=== PATIENT | female | born 1980 ===

== ENCOUNTER 2024-06-15 08:55 | Outpatient (AMB) | payer OTHER, SELFPAY ==
[2024-06-15 09:01] VITALS: BP 120/70; PULSE 87; TEMP 36.6; O2SAT 98; BMI 30.4
--- NOTE | 2024-06-15 09:01 | AM.OFFWIN_ITS ---
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 Patient Tobacco Use Status: Never used Tobacco Allergies amoxicillin [Augmentin] Allergy (Unknown, Verified 06/15/24 09:03) unknown clavulanic acid [Augmentin] Allergy (Unknown, Verified 06/15/24 09:03) unknown Do you need a note to return to daycare/school/sports/work: Yes HPI HPI Comments History of Present Illness Details History - The patient is a 44-year-old female pr esenting with a swollen and painful throat. - Last night, she started feeling throat pain after having no symptoms over the weekend. - During evaluation, the patient denied having a fever, significant cough, ear pain, sinus pain, or headache. She reported no history of seasonal asthma or significant allergies. - A slight runny nose was noted this [facility], but she had no associated shortness of breath or difficulty swallowing. - Strep test results were negative. Prev iously, she perceived some sneezing last year though it was attributed to being sick then. Physical Exam General: Cooperative, healthy appearing, comfortable and no acute distress Orientation/consciousness: Patient oriented x3 Limitations: No limitations Head: Normal to inspection Ears: Hearing grossly normal bilaterally, external ears normal and TM's normal bilaterally Nose: Normal external nose present, Normal nares present and Yes nasal discharge present Face and sinus: Normal facial exam and Yes sinuses nontender Mouth: Normal oral and palatal mucosa present and moist mucous membranes Throat: Yes tonsils normal, Yes uvula midline. Posterior oropharynx erythema and swollen Eyes: Appearance normal, both eyes and all related structures Neck: Normal visual inspection Respiratory: Clear to auscultation bilaterally. Normal respiratory effort, able to speak in complete sentences, No active coughing, no respiratory distress, not tachypneic, no tripod positioning and no use of accessory muscles Cardiovascular: Regular rate and rhythm. Normal S1 and S2 Skin: No rashes or lesions noted Neuro: Patient oriented x3 Extremities: Normal to inspection and Yes no clubbing, cyanosis or edema PFSH Social History Patient Tobacco Use Status: Never used Tobacco Review of Systems Const All systems reviewed & are unremarkable except as noted in HPI and below Physical Exam Vital Signs: Last Vital Signs Temp 98 F 06/15/24 09:01 Pulse 87 06/15/24 09:01 BP 120/70 06/15/24 09:01 Pulse Ox 98 06/15/24 09:01 Oxygen Delivery Method Room Air 06/15/24 09:01 BMI result Body Mass Index 30.4 Assessment & Plan Assessment & Plan (1) Acute viral pharyngitis: Code(s): J02.9 - Acute pharyngitis, unspecified Plan: VSS, pt well appearing and PE unremarkable. Based on the patient's symptom profile and negative strep test, I diagnosed viral upper respiratory infection. To alleviate throat pain and inflammation, I recommended ibuprofen 600 mg along with OTC chlorhexidine lozenges or OTC cough suppressants if symptoms progress. A viral panel was ordered to identify the exact pathogen. The patient was advised on rest and hydration, with a note provided for work absence to recover. I will communicate the viral test outcomes subsequently, as the likelihood of a viral causation is strong. Patient was informed and verbally consented to the use of an ambient scribe for clinic note documentation during this visit Orders: Orders 2 Resp Pathogen Panel - [facility] [place] Today J06.9 - Acute upper respiratory infection, unspecified Coding Level of Care Code New Pt Level 3 (38004) Diagnoses Acute viral pharyngitis J02.9
--- OUTSIDE RECORDS SUMMARY | 2024-06-15 09:22 | XMS_ITS | Clinical Summary ---
Author Organization [facility] Address [address] [place] [address] Phone Care Team Providers Care Structural Steel Painter Name Role Phone Alise Baldwin NP Primary Care Provider Unavail able Immunizations Immunization Administration Dates Next Due DTP 05/06/1986,10/30/1982,1981 ,1981,1981 MMR 11/26/1991,05/25/1986 OPV 05/06/1986,10/30/1982,1981 ,1981,1981 Social History Tobacco Use Types Packs/Day Years Used Date Smoking Tobacco: Never Assessed Comments Unknown Sex and Gender Information Value Date Recorded Sex Assigned at Not on file Legal Sex Female 4:45 PM EDT Gender Identity Not on file Sexual Orientation Not on file Plan of Treatment Health Maintenance Due Date Last Done Comments DTaP,Tdap,and Td Vaccines (6 - Tdap) 02/05/1992 05/06/1986, 10/30/1982, 1981, Additional history exists Varicella Vaccines (1 of 2 - 13+ 2-dose series) 1994 Hepatitis B Vaccines (1 of 3 - 19+ 3-dose series) 02/05/2000 Influenza Vaccines (#1) 2023 COVID-19 Vaccine ( season) 2023 IPV Vaccines Completed 05/06/1986, 07/1982, 1981, Additional history exists MMR Vaccines Completed 11/26/1991, 05/25/1986 HIB Vaccines Aged Out No longer eligi ble based on patient's age to complete this topic HPV Vaccines Aged Out No longer eligi ble based on patient's age to complete this topic Hepatitis A Vaccines Aged Out No long er eligible based on patient's age to complete this topic Men B Vaccine Aged Out No longer elig ible based on patient's age to complete this topic Meningococcal Vaccine Aged Out No charlotte mee eligible based on patient's age to complete this topic Pneumococcal Vaccine Aged Out No long er eligible based on patient's age to complete this topic Care Teams Structural Steel Painter Relationship Specialty Start Date End Date Alise Baldwin NP PCP - General 10/04/16
--- OUTSIDE RECORDS SUMMARY | 2024-06-15 09:22 | XMS_ITS | Clinical Summary ---
Author Organization [address] Address [address] [place] [phone] Phone Care Team Providers Care Labor Standards Director Name Role Phone Veronica Sauer MD Primary Care Provider [phone] Allergies Active Allergy Reactions Criticality Noted Date Comments Amoxicillin-Pot Clavulanate Nausea And Vomiting Low 07/07/2008 Medications cephalexin (KEFLEX) 500 mg capsuleIndicati ons:Acute cystitis without hematuria Take 1 capsule (500 mg total) by mouth 3 (three) times a day for 10 days. 30 each 05/10/2024 05/21/19 25 Active Problems Problem Noted Date Diagnosed Date Overweight (BMI 25.0-29.9) 03/12/2022 Thyroid nodule 01/13/2008 Overview (02/12/2024): Left nodule biopsied 01/31, benign Encounters Date Type Department Care Team Description 05/10/2024 1:30 PM EDT Office Visit Adult Medicine [address] [phone] Nicole Elizalde PA Acute cystitis without hematuria (Primary Dx) from Last 3 Months Immunizations Name Administration Dates Next Due DTP 05/06/1986, 3,1981,1981,1981 Hepatitis B (Akqerpa-B-Rydck , Recombivax HB-Adult) 19yo and older 10/23/2005,09/10/2005 Influenza Quadravalent, MDCK , 0.5ml, preservative free (Flucelvax) 6mo and older 12/24/2018 Influenza trivalent, 0.5mL, preservative free (Fluarix; FluLaval; Fluzone) ages 6mo and older (Afluria) 3 years and older 02/13/2022,02/07/2021,2005 MMR, measles mumps and rubel la Live (Priorix; M-M-R II) 12mo and older 11/26/1991,05/25/1986 OPV 05/06/1986, 3,1981,1981 PPD Test 08/05/2008,07/29/2006,12/25/1997 Td Tetanus diptheria (Tdvax) 7yo and older 02/24/1999 Tdap Tetanus diptheria acell ular pertussis (Boostrix; Adacel) 7yo and older 01/19/2019,07/29/2012 Surgical History Surgery Date Site/Laterality Comments APPENDECTOMY 1982 PROCEDURE: HISTORICAL APPENDECTOMY Medical History Medical History Date Comments Thyroid nodule 01/13/2008 DX:Thyroid nodul e Migraines DX:Migraines; CO MMENT: without aura Family History Medical History Relation Name Comments Hypertension Maternal Grandfather [place], [place] Liver cancer Maternal Grandmother Dementia Mother fibromyalgia; c olon polyps Breast cancer Neg Hx Ovarian cancer Neg Hx Uterine cancer Neg Hx Relation Name Status Comments Brother x 1 Alive Father not biologic Alive Maternal Grandfather Maternal Grandmother Mother Alive Sister x 2 Alive Social History Tobacco Use Types Packs/Day Years Used Date Smoking Tobacco: Never Smokeless Tobacco: Never Tobacco Cessation:Counseling Given: Not Answered Alcohol Use Standard Drinks/Week Comments Yes 0 (1 standard drink = 0.6 oz pur e alcohol) Housing Instability Answer Date Recorde d Are you worried that in the next 2 months you may not have stable housing? No 05/10/2024 Food Access & Nutrition Answer Date Rec orded Do you have access to a vari ety of food including fruits and vegetables? Yes 05/10/2024 Access to Healthcare Answer Date Record ed Within the last 3 months, tremayne rand many times did you visit the emergency department for your medical care? 0 05/10/2024 Health Literacy Answer Date Recorded How often do you need to hav e someone help you when you read instructions, pamphlets, or other written material from your doctor or pharmacy? Never 05/10/2024 Caregiver: How often do you need to have someone help you when you read instructions, pamphlets, or other written material from your doctor or pharmacy? Not on file 05/10/2024 Financial Risk Answer Date Recorded How hard is it for you to pa y for the very basics like food, housing, medical care, and air conditioning / heating? Patient declined 05/10/2024 Transportation Answer Date Recorded Has the lack of transportati on kept you from meetings, work, or from getting things needed for daily living? No Has the lack of transportati on kept you from medical appointments or from getting medications? No 05/10/2024 Social Isolation Answer Date Recorded How often do you feel lonely or isolated from th ose around you? Never 05/10/2024 Food Risk Answer Date Recorded Within the past 12 months we worried whether our food would run out before we got money to buy more. Never true 05/10/2024 Within the past 12 months th e food we bought just didn't last and we didn't have money to get more. Never true 05/10/2024 Dependent Care Answer Date Recorded Do you need help finding or paying for care for your loved ones. For example, rn maternal child or elderly care for an older adult? No 05/10/2024 Education Answer Date Recorded Do you think completing more education or training, like finishing a GED, going to college, or learning a trade, would be helpful for you? No 05/10/2024 Employment and Income Answer Date Recor ded During the last four weeks, have you been actively looking for work? Patient declined 05/10/2024 Living Situation Answer Date Recorded What is your living situation? 0 05/10/2024 Comments Unknown Sex and Gender Information Value Date Recorded Sex Assigned at Not on file Legal Sex Female 1:55 PM EST Gender Identity Not on file Sexual Orientation Not on file Obstetrics History Last Filed Vital Signs Vital Sign Reading Time Taken Comments Blood Pressure 120/72 05/10/2024 1:30 PM EDT Pulse 80 05/10/2024 1:30 PM EDT Temperature 36.7 ??C (98 ??F) 05/10/2024 1:30 PM EDT Respiratory Rate - - Oxygen Saturation - - Inhaled Oxygen Concentration - - Weight 78.6 kg (173 lb 3.2 oz) 05/10/2024 1:30 P M EDT Height 162.6 cm (5' 4 ) 05/10/2024 1:30 PM EDT Body Mass Index 29.73 05/10/2024 1:30 PM EDT Plan of Treatment Health Maintenance Due Date Last Done Comments Hepatitis B Vaccines (3 of 3 - 19+ 3-dose series) 03/13/2006 10/23/2005, 09/10/2005 Hepatitis C Screening 02/02/2022 COVID-19 Vaccine ( season) 2023 02/06/2023, 02/07/2021 Breast Cancer Screening 01/20/2024 01/19/2022 Influenza Vaccine (Season Ended) 2024 02/06/2023, 02/13/2022, 02/07/2021, Additional history exists Depression Screening 05/10/2025 05/10/2024 Social Influencers of Health Screening 05/10/2025 05/10/2024 Cervical Cancer Screening: HPV 01/11/2027 01/11/2022 Cholesterol Screening (Lipid Panel) 10/01/2027 09/30/2022 DTaP,Tdap,and Td Vaccines (9 - Td or Tdap) 01/19/2029 01/19/2019, 07/29/2012, 02/24/1999, Additional history exists IPV Vaccines Completed 05/06/1986, 07/1982, 1981, Additional history exists MMR Vaccines Completed 11/26/1991, 05/25/1986 HIV Screening Completed 10/11/2018 HIB Vaccines Aged Out No longer eligi ble based on patient's age to complete this topic HPV Vaccines Aged Out No longer eligi ble based on patient's age to complete this topic Hepatitis A Vaccines Aged Out No long er eligible based on patient's age to complete this topic Meningococcal ACWY Vaccine Aged Out N o longer eligible based on patient's age to complete this topic Meningococcal B Vaccine Aged Out No l onger eligible based on patient's age to complete this topic Pneumococcal Vaccine: Pediatrics (0 to 5 Years) and At-Risk Patients (6 to 64 Years) Aged Out No longer eligible based on patient's age to complete this topic RSV Immunization Patients Under 20 months Aged Out No longer eligible based on patient's age to complete this topic Varicella Vaccines Aged Out No longer eligible based on patient's age to complete this topic Procedures Procedure Name Priority Date/Time Associated Diagnosis Comments POC URINE NON-AUTO W/O MICRO Routine 05/10/2024 1:43 PM EDT Acute cystitis without hematuria CULTURE URINE Routine 05/10/2024 1:40 PM EDT Acute cystitis without hematuria LIPID PANEL Routine 09/30/2022 SCREENING MAMMOGRAPHY BI 2-VIEW BREAST INC CAD Routine 01/19/2022 10:52 AM EST Encounter for gynecological examination (general) (routine) without abnormal findings Encounter for screening mammogram for malignant neoplasm of breast HM HPV Routine 01/11/2022 HIV SCREENING Routine 10/11/2018 from Last 3 Months or Most Recently Relevant to Health Maintenance Results * (ABNORMAL) POC Urine Non-Auto W/O Micro (05/10/2024 1:43 PM EDT) GLUCOSE POC Negative Negative, Trace mg/dL Blood UA POC 3+(A) Negative SPECIFIC GRAVITY POC 1.010 Ketones UA POC Negative Negative Bilirubin UA POC Negative Negative Urine Urine specimen obtained by clean catch procedure / Unknown 05/10/2024 1:43 PM EDT Nicole BECERRA POINT OF CARE TEST ENTER/EDIT OR DERABLES Final Result * (ABNORMAL) Culture urine (05/10/2024 1:40 PM EDT) Culture, Urine 10,000-49,000 CFU/mL Escherichia coli(A) MAICOL 05/13/2024 9:39 AM EDT [facility] Comment: This is an edited result. Previous organism was Gram negative bacilli on 05/12/2024 at 0746 EDT. Urine Urine specimen from urethra / Unknown Non-blood Collection / Unknown 05/10/2024 1:40 PM EDT 05/10/2024 1:40 PM EDT Narrative Organism Antibiotic Method Susceptibility Escherichia coli Amoxicillin/Clavulanate MAICOL 16 ug/ml: Intermediate Escherichia coli Ampicillin/Sulbactam MAICOL 16 ug/ml: Intermediate Escherichia coli Piperacillin/Tazobactam MAICOL <=4 ug/ml: Susceptible Escherichia coli Cefazolin (Urine) MAICOL 4 ug/ml: Susceptible Escherichia coli Cefoxitin MAICOL <=4 ug/ml: Susceptible Escherichia coli Ceftazidime MAICOL <=0.5 ug/ml: Susceptible Escherichia coli Ceftriaxone MAICOL <=0.25 ug/ml: Susceptible Escherichia coli Cefepime MAICOL <=0.12 ug/ml: Susceptible Escherichia coli Meropenem MAICOL <=0.25 ug/ml: Susceptible Escherichia coli Amikacin MAICOL 4 ug/ml: Susceptible Escherichia coli Gentamicin MAICOL <=1 ug/ml: Susceptible Escherichia coli Ciprofloxacin MAICOL <=0.06 ug/ml: Susceptible Escherichia coli Levofloxacin MAICOL <=0.12 ug/ml: Susceptible Escherichia coli Nitrofurantoin MAICOL <=16 ug/ml: Susceptible Escherichia coli Trimethoprim/Sulfamethoxazole MAICOL >=320 ug/ml: Resistant Nicole BECERRA LAB MICROBIOLOGY - GENERAL ORDER RICO Final Result [facility] [address] [place] [address], * (ABNORMAL) Lipid panel (09/30/2022) LDL/HDL Ratio 4 0 - 4 Triglycerides 101 0 - 150 mg/dL Cholesterol 172 0 - 200 mg/dL HDL 46 >=40 mg/dL LDL Cholesterol 106(A) 0 - 100 mg/dL Blood Venous blood specimen / Unknown Historical Provider MD LAB BLOOD ORDERABLES Julia l Result * SCREENING MAMMOGRAPHY BI 2-VIEW BREAST INC CAD (01/19/2022 10:52 AM EST) Anatomical Region Laterality Modality Radiographic Stacey ging 01/11/2022 10:1 4 AM EST Narrative 01/21/2022 6:37 PM EST This is a summary report. The complete report is available in the patient's medical record. If you cannot access the medical record, please contact the sending organization for a detailed fax or copy. Exam: Screening mammogram Findings: Digital bilateral full-field screening mammography is performed with tomosynthesis and interpreted with the aid of computer-aided detection. ??This is a baseline exam. Breast parenchyma is heterogeneously dense, limiting mammographic sensitivity. ??No suspicious mass, architectural distortion, or suspicious calcifications. Impression: No mammographic evidence of malignancy. BI-RADS 1 - negative Procedure Note Rosmery Issa MD - 04/01/2023 This is a summary report. The complete report is available in thepatient's medical record. If you cannot access the medical record, pleasecontact the sending organization for a detailed fax or copy. Exam: Screening mammogram Findings: Digital bilateral full-field screening mammography is performedwith tomosynthesis and interpreted with the aid of computer-aideddetection. This is a baseline exam. Breast parenchyma is heterogeneously dense, limiting mammographicsensitivity. No suspicious mass, architectural distortion, or suspiciouscalcifications. Impression: No mammographic evidence of malignancy. BI-RADS 1 - negative Kelsie Nair [facility] IMG XR PROCEDURES Final Result * Cervical Cancer Screening: HPV (01/11/2022) [facility] Cervical Cancer Screening: HPV Abstracted ,Negative Historical Provider HEALTH MAINTENANCE Final Result * HIV Screening (10/11/2018) Pathologist [facility] [place] HIV Screening Abstracted Historical Provider HEALTH MAINTENANCE Edited Result - Final from Last 3 Months or Most Recently Relevant to Health Maintenance Insurance [facility] [place] [id number] [facility] Care Teams Labor Standards Director Relationship Specialty Start Date End Date Veronica Sauer MD [address] [place] [address] PCP - General 01/28/05
== END 2024-06-15 09:25 | disposition home or self-care (01) ==
PROVIDERS: PCP Internal Medicine; Visit Provider Physician Assistant
DX: Z13.9 Encounter for screening, unspecified (principal); J02.9 Acute pharyngitis, unspecified

== ENCOUNTER 2024-06-15 08:55 | Outpatient (REF) | payer OTHER, SELFPAY ==
--- OUTSIDE RECORDS SUMMARY | 2024-06-15 10:04 | XMS_ITS | Clinical Summary ---
Author Organization [facility] Address [address] [place] [address] Phone Care Team Providers Care Head Automatic Sawyer Name Role Phone Alise Baldwin NP Primary [...] age to complete this topic Care Teams Head Automatic Sawyer Relationship Specialty Start Date End Date Alise Baldwin NP PCP - General 10/04/16
--- OUTSIDE RECORDS SUMMARY | 2024-06-15 10:04 | XMS_ITS | Clinical Summary ---
Author Organization [address] Address [address] [place] [phone] Phone Care Team Providers Care Middle School History Teacher Name Role Phone Veronica Sauer MD Primary Care Provider Allergies Active Allergy Reactions Criticality Noted Date [...] 1:30 PM EDT Office Visit Adult Medicine [address] [phone] Nicole Elizalde PA Acute cystitis without hematuria (Primary Dx) from Last 3 Months Immunizations Name Administration Dates Next Due DTP 05/06/1986, 3,1981,1981,1981 Hepatitis B (Kcqhvhk-I-Yvbgb , Recombivax HB-Adult) 19yo and older 10/23/2005,09/10/2005 [...] History Relation Name Comments Hypertension Maternal Grandfather [place], [place] Liver cancer Maternal Grandmother Dementia [...] care for your loved ones. For example, child psychology teacher or elderly care for an older adult? [...] Escherichia coli(A) MAICOL 05/13/2024 9:39 AM EDT [facility] Comment: This is [...] MICROBIOLOGY - GENERAL ORDER RICO Final Result [facility] [address] [place] [address], * (ABNORMAL) Lipid panel (09/30/2022) LDL/HDL Ratio [...] malignancy. BI-RADS 1 - negative Kelsie Nair [facility] IMG XR PROCEDURES Final Result * Cervical Cancer Screening: HPV (01/11/2022) [facility] Cervical Cancer Screening: HPV Abstracted ,Negative Historical Provider HEALTH MAINTENANCE Final Result * HIV Screening (10/11/2018) Pathologist [facility] HIV Screening Abstracted Historical Provider HEALTH MAINTENANCE Edited Result - Final from Last 3 Months or Most Recently Relevant to Health Maintenance Insurance [facility] [place] [id number] [facility] Care Teams [employer] History Teacher Relationship Specialty Start Date End Date Veronica Sauer MD [address] [place] [address] PCP - General 01/28/05
[2024-06-15 12:22] LABS: Adenovirus PCR Not Detected (Not Detect.); Bordetella parapertussis PCR Not Detected (Not Detect.); Bordetella pertussis PCR Not Detected (Not Detect.); Chlamydia pneumoniae PCR Not Detected (Not Detect.); Coronavirus 229E PCR Not Detected (Not Detect.); Coronavirus HKU1 PCR Not Detected (Not Detect.); Coronavirus NL63 PCR Not Detected (Not Detect.); Coronavirus OC43 PCR Not Detected (Not Detect.); Human metapneumovirus PCR Not Detected (Not Detect.); Influenza A PCR Not Detected (Not Detect.); Influenza B PCR Not Detected (Not Detect.); Mycoplasma pneumoniae PCR Not Detected (Not Detect.); Parainfluenza 1 PCR Not Detected (Not Detect.); Parainfluenza 2 PCR Not Detected (Not Detect.); Parainfluenza 3 PCR Not Detected (Not Detect.); Parainfluenza 4 PCR Not Detected (Not Detect.); RSV PCR Not Detected (Not Detect.); Rhino/Enterovirus PCR Not Detected (Not Detect.)
[2024-06-15 13:25] LABS: Influenza A H1 PCR Not Detected (Not Detect.); Influenza A H1-2009 PCR Not Detected (Not Detect.); Influenza A H3 PCR Not Detected (Not Detect.); SARS-CoV-2 PCR Not Detected (Not Detect.)
== END 2024-06-15 08:56 | disposition home or self-care (01) ==
LOC: HO.LAB 08:55
PROVIDERS: Physician Assistant; PCP Internal Medicine
DX: J06.9 Acute upper respiratory infection, unspecified (principal); J02.9 Acute pharyngitis, unspecified
CPT/HCPCS: 87633; 87880